=== PATIENT | male | born 1955 | race Caucasian/White ===

== ENCOUNTER 2024-04-18 12:53 | Emergency (ER) | payer OTHER, SELFPAY ==
--- NOTE | 2024-04-18 13:29 | ED.GENMED ---
History of Present Illness
General
Chief Complaint: Musculo-Skeletal Complaint
Time Seen by Provider: 04/18/24 13:15
History of Present Illness
History of Present Illness:
68-year-old male presenting with right shoulder pain status post mechanical fall. Patient states that he tripped and fell onto his right shoulder. Patient denies head strike or loss of consciousness. Patient denies neck pain, numbness, weakness,
tingling, chest pain or shortness of breath. Patient states that he is having difficulty with range of motion right shoulder secondary to pain.
Phy Exam
Physical Exam
Physical Exam:
General: Alert, no acute distress
Head: NCAT
Eyes: clear conjunctiva
Neck: supple. no midline cervical tenderness to palpation
Cardiac: regular rate and rhythm, no murmur
Lungs: clear to auscultation bilaterally. No wheezes, rales, or rhonchi. Speaking full unlabored sentences. No respiratory distress.
MSK: No right shoulder tenderness to palpation. No right humerus/elbow/wrist tenderness to palpation. 2+ right radial pulse. No right clavicle tenderness or step-off. Full range of motion right wrist and elbow.
Skin: warm, dry
Neuro: Alert and oriented x3. no focal deficits. 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
Course
Orders/Labs/Results
Orders:
Orders
04/18/24 12:59
CR Humerus - Right Min 2 View* Urgent
Comment:
Reason For Exam: fall pain
CR Shoulder, Trauma - Right Urgent
Comment:
Reason For Exam: fall pain
Vital Signs
Initial and Last Documented VS:
Initial Vital Signs
Temp Pulse Resp Pulse Ox
98.3 F 71 20 97
04/18/24 12:55 04/18/24 12:55 04/18/24 12:55 04/18/24 12:55
Last Documented Vital Signs
Temp Pulse Resp BP Pulse Ox
98.3 F 69 16 137/86 97
04/18/24 12:55 04/18/24 16:07 04/18/24 16:07 04/18/24 16:07 04/18/24 16:07
MDM/Problems Addressed
Differential Diagnosis Includes:
Patient presents to the Emergency Department with right shoulder pain s/p mechanical fall
Number and Complexity of Problems Addressed at the Encounter
� Chronic conditions affecting care:
� Acute Exacerbation and/or Progression of Chronic Illness:
� Differential Diagnosis includes: Fracture, dislocation, labrum tear, sprain
Amount and/or Complexity of Data to be Reviewed and Analyzed
� I performed an independent evaluation of and my interpretation is:
EKG:
CT:
Xrays:
Laboratory Studies:
Other:
� Review of other/old records reveals:
� Clinical information was obtained by an independent historian:
� Prescriptions/Medications Considered but not given:
� Further testing considered but not performed:
Risk of Complications and/or Morbidity or Mortality of Patient Management
� Social Determinants of health affecting care:
� Discussion with other providers (PCP, Hospitalists, Consultants, etc):
� Escalation of care including admission/observation vs risk of discharge considered: 68-year-old male presenting with right shoulder pain status post mechanical fall. Patient states that he tripped and fell onto his right shoulder. Patient denies
head strike or loss of consciousness. X-ray right shoulder and humerus reviewed by me, no acute fracture or dislocation. Will place in right shoulder sling, discharge with orthopedic follow up
*Critical Care Note
Total Time (30-74mins, 75-104mins- exclusive of procedures): Not Applicable
ED Attending Note
-
Portions of this chart may have been created with voice recognition software.� Occasional wrong word or��sound alike� substitutions may have occurred due to the inherent limitations of voice recognition software.
Discharge Plan
Departure
Patient Disposition: Home (Routine Discharge)
Date of Disposition: 04/18/24
Time of Disposition: 16:00
Patient with high blood pressure during this ER visit?: No
Discharge Problem:
Acute pain of right shoulder
Instructions: Shoulder Pain ED
Referrals:
Dona Lin I., DO [Active] -
Foreign Ruth, [Family Provider] -
Activity Restrictions/Additional Instructions:
Take tylenol 975mg every 6 hours and/or ibuprofen 800mg every 8 hours with food as needed for pain
Use shoulder sling as needed for pain. Take shoulder out of sling daily and move around fully to decrease risk of developing frozen shoulder in future
Follow up with orthopedics in 1 week
Return to the emergency department for new/worsening symptoms
Interventions
Interventions:
*Risk Screen - Suicide Last Done: 04/18/24 12:55
*General Assessment Last Done: 04/18/24 12:55
*Neglect/Abuse Screening Last Done: 04/18/24 12:55
ED- Fall Risk Assessment Last Done: 04/18/24 14:58
*ED COVID-19 Vaccine History Last Done: 04/18/24 14:57
*Nursing Disposition Last Done: 04/18/24 16:15
ED-Musculoskeletal Assessment Last Done: 04/18/24 13:54
Discharge Date and Time
Discharge Date/Time: 04/18/24 16:15
Print Language: LUXEMBOURGER
[2024-04-18 13:54] VITALS: BMI 29.6
[2024-04-18 16:07] VITALS: BP 137/86
== END 2024-04-18 16:15 | disposition home or self-care (01) ==
LOC: EMR 12:53
PROVIDERS: EMERGENCY PHYSICIAN Emergency Medicine; FAMILY PHYSICIAN Family Medicine
DX: M25.511 Pain in right shoulder (principal); S49.91XA Unspecified injury of right shoulder and upper arm, initial encounter; W01.0XXA Fall on same level from slipping, tripping and stumbling without subsequent striking against object, initial encounter; Z91.011 Allergy to milk products
CPT/HCPCS: 99283; 73030; 73060

== ENCOUNTER → 2024-08-05 11:22 | Outpatient (REF) | payer OTHER, SELFPAY | LOC: MRI 3T 11:22 | PROVIDERS: ATTENDING PHYSICIAN Physician Assistant; FAMILY PHYSICIAN Family Medicine | DX: M25.511 Pain in right shoulder (principal) | CPT/HCPCS: 73221 ==

== ENCOUNTER → 2024-08-16 15:22 | Outpatient (REF) | payer OTHER, SELFPAY ==
[2024-08-16 16:19] LABS: % Basophils 0.8 % (0-2); % Eosinophils 1.5 % (0-6); % Immature Granulocytes 0.3 % (0-0.5); % Lymphocytes 27.1 % (20.5-51.1); % Monocytes 7.5 % (1.7-9.3); % Neutrophils 62.8 % (42.2-75.2); Absolute Basophils 0.1 10^3/uL (0-0.2); Absolute Eosinophils 0.1 10^3/uL (0-0.7); Absolute Lymphocytes 2.6 10^3/uL (1.2-3.4); Absolute Monocytes 0.7 10^3/uL (0.1-0.6); Hematocrit 38.9 % (39.0-52.0); Hemoglobin 13.7 g/dL (13.0-18.0); Mean Corp Hgb Conc. 35.2 g/dL (33.0-37.0); Mean Corpuscular Hgb 29.8 pg (27.0-31.0); Mean Corpuscular Volume 84.7 fL (80.0-94.0); Mean Platelet Volume 9.6 fL (7.4-10.4); Nucleated Red Blood Cells % 0 % (-); Platelet Count 347 10^3/uL (130-400); Red Blood Cell Count 4.59 10^6/uL (4.70-6.10); White Blood Cell Count 9.5 10^3/uL (4.8-10.8)
[2024-08-16 16:48] LABS: Blood Urea Nitrogen 25 mg/dl (9-20); Calcium 9.3 mg/dl (8.4-10.2); Carbon Dioxide 32 mmol/L (22-30); Chloride 95 mmol/L (98-107); Glucose 92 mg/dl (70-99); Potassium 4.3 mmol/L (3.5-5.1); Sodium 138 mmol/L (135-145); eGFR > 60.00
== END ==
LOC: REG 15:22
PROVIDERS: ATTENDING PHYSICIAN Orthopaedic Surgery
DX: Z01.818 Encounter for other preprocedural examination (principal)
CPT/HCPCS: 36415; 80048; 85025; 93005

== ENCOUNTER 2024-08-18 06:04 | Day surgery (SDC) | payer OTHER, SELFPAY ==
[2024-08-18] VITALS (10 sets, daily range): BP systolic 113–141; BP diastolic 68–84; BMI 29.6
[2024-08-18] MEDS: CELEBREX 200 MG PO (06:13)
[2024-08-18] MEDS: TYLENOL 1000 MG PO (06:13)
[2024-08-18] MEDS: SUBLIMAZE 50 MCG IV ×3 (09:04→09:35)
[2024-08-18] MEDS: ROXICODONE 5 MG PO (10:11)
== END 2024-08-18 10:45 | disposition home or self-care (01) ==
LOC: SDS 06:04
PROVIDERS: ATTENDING PHYSICIAN Orthopaedic Surgery
DX: S46.011A Strain of muscle(s) and tendon(s) of the rotator cuff of right shoulder, initial encounter (principal); S46.211A Strain of muscle, fascia and tendon of other parts of biceps, right arm, initial encounter; X58.XXXA Exposure to other specified factors, initial encounter; M25.511 Pain in right shoulder
CPT/HCPCS: 29827

== ENCOUNTER → 2025-01-03 16:12 | Outpatient (REF) | payer OTHER, SELFPAY | LOC: MRI 3T 16:12 | PROVIDERS: ATTENDING PHYSICIAN Physician Assistant Medical; FAMILY PHYSICIAN Family Medicine | DX: C61 Malignant neoplasm of prostate (principal) | CPT/HCPCS: 72197; 73221; A9575 ==

== ENCOUNTER 2025-01-23 06:17 | Day surgery (SDC) | payer OTHER, SELFPAY | END 2025-01-23 09:10 | disposition home or self-care (01) | LOC: GI 06:17 | PROVIDERS: ATTENDING PHYSICIAN Internal Medicine Gastroenterology; FAMILY PHYSICIAN Family Medicine | DX: Z12.11 Encounter for screening for malignant neoplasm of colon (principal); Z53.8 Procedure and treatment not carried out for other reasons | CPT/HCPCS: G0378 ==

== ENCOUNTER 2025-01-24 06:22 | Day surgery (SDC) | payer OTHER, SELFPAY | END 2025-01-24 15:30 | disposition home or self-care (01) | LOC: GI 06:22 | PROVIDERS: ATTENDING PHYSICIAN Internal Medicine Gastroenterology | DX: Z12.11 Encounter for screening for malignant neoplasm of colon (principal); K57.30 Diverticulosis of large intestine without perforation or abscess without bleeding; K64.8 Other hemorrhoids | CPT/HCPCS: G0121 ==

== ENCOUNTER 2025-05-05 14:43 | Emergency (ER) | payer OTHER, SELFPAY ==
[2025-05-05 14:51] VITALS: BP 101/70; BP 116/80
[2025-05-05 15:00] VITALS: BP 116/80
[2025-05-05 15:29] LABS: Hematocrit 38.2 % (39.0-52.0); Hemoglobin 13.2 g/dL (13.0-18.0); Mean Corp Hgb Conc. 34.6 g/dL (33.0-37.0); Mean Corpuscular Volume 88.0 fL (80.0-94.0); Nucleated Red Blood Cells % 0 % (-); Platelet Count 277 10^3/uL (130-400); Red Cell Dist. Width 12.1 % (11.5-14.5)
[2025-05-05 15:52] LABS: ALT (SGPT) 23 U/L (0-50); AST (SGOT) 30 U/L (17-59); Albumin 3.7 g/dl (3.5-5.0); Alkaline Phosphatase 78 U/L (38-126); Blood Urea Nitrogen 18 mg/dl (9-20); Calcium 8.7 mg/dl (8.4-10.2); Carbon Dioxide 27 mmol/L (22-30); Chloride 98 mmol/L (98-107); Estimated Creatinine Clearance 86 ml/min; Glucose 113 mg/dl (70-99); Potassium 3.4 mmol/L (3.5-5.1); Sodium 133 mmol/L (135-145); Total Protein 5.8 g/dl (6.3-8.2); eGFR > 60.00
[2025-05-05 16:00] VITALS: BP 128/77
--- NOTE | 2025-05-05 16:30 | ED.GENMED ---
History of Present Illness
General
Chief Complaint: Abdominal Pain
Time Seen by Provider: 05/05/25 14:59
History of Present Illness
History of Present Illness:
69-year-old male presents to the emergency department for evaluation of abdominal discomfort, constipation, and a near syncopal event. The patient is 3 days status post robotic assisted prostatectomy, ventral hernia repair, and hydrocele repair
performed at [facility]. He has not had a bowel movement since then despite laxatives. He reports episodic waves of diffuse abdominal pain, was having increased pain today for a visiting nurse, she attempted to stand him at which point he had
an orthostatic episode of near syncope. He described the event as very comparable to his prior vertigo from Meniere disease.
Review of Systems
Review of Systems
Allergies reviewed?: Yes
All Other Systems: ROS reviewed and negative except as documented in HPI and ROS
Phy Exam
Physical Exam
Physical Exam:
GEN: Well appearing, NAD, WDWN
Eyes: PERRLA, EOMs intact, no scleral icterus
HENT: NCAT, oral mucosa moist
Lungs: CTAB, no wheezes, rales, rhonchi, normal chest wall excursion
Cardiac: RRR, no M/R/G, no peripheral edema. Radial pulses 2+ bilat
Abdomen: Soft but distended, postoperative incisions are clean dry and intact, no rigidity, diffusely tender to all 4 quadrants
Neuro: AO x 3
MSK: No gross deformity or ecchymosis. No edema. No digital clubbing
Skin: No rashes, petechiae. Normal color, no pallor or jaundice.
Psych: Calm, cooperative, proper hygiene
Course
Orders/Labs/Results
Orders:
Orders
05/05/25 15:16
Complete Blood Count/With Diff Urgent
Comprehensive Metabolic Panel Urgent
05/05/25 15:45
CT Abd/Pel (IV only)-DH only Urgent
Comment:
Reason For Exam: abd pain, 3d post prostatectomy/hernia repair
05/05/25 18:36
Polyethylene Glycol Powder [Miralax] 17 grams PO NOW STA
Simethicone [Mylicon] 80 mg PO NOW STA
Abnormal Lab Results
05/05/25
15:16
RBC 4.34 L 10^6/uL
(4.70-6.10)
Hct 38.2 L %
(39.0-52.0)
Abs Immat Gran (auto) 0.1 H 10^3/uL
(0-0.05)
Absolute Neuts (auto) 7.0 H 10^3/uL
(1.4-6.5)
Absolute Monos (auto) 0.9 H 10^3/uL
(0.1-0.6)
Sodium 133 L mmol/L
(135-145)
Potassium 3.4 L mmol/L
(3.5-5.1)
Glucose 113 H mg/dl
(70-99)
Total Protein 5.8 L g/dl
(6.3-8.2)
05/05/25 15:16
05/05/25 15:16
Vital Signs
Initial and Last Documented VS:
Initial Vital Signs
Temp Pulse Resp BP Pulse Ox
98.3 F 74 16 116/80 94
05/05/25 14:51 05/05/25 14:51 05/05/25 14:51 05/05/25 14:51 05/05/25 14:51
Last Documented Vital Signs
Temp Pulse Resp BP Pulse Ox
98.3 F 75 20 128/77 96
05/05/25 14:51 05/05/25 18:30 05/05/25 18:30 05/05/25 16:00 05/05/25 18:30
MDM/Problems Addressed
MDM/Problems Addressed:
69-year-old male presenting with abdominal discomfort and a near syncopal/vasovagal event. Imaging revealed fluid collections in the pelvis however reviewed these findings via telephone with on-call urology Dr. Aguilar at [facility], he
feels that these most likely represent postoperative seromas/lymphatic collections in the setting of no fever and no leukocytosis. Patient feels improved at this time. I suspect his abdominal pain is most likely related to increased colonic air
and stool. Will discuss bowel regimen, patient suitable for outpatient management
*Pulse Oximetry
SaO2: 94
Nasal Cannula flow liters per minute: 2
Patient hypoxic: no
*Critical Care Note
Total Time (30-74mins, 75-104mins- exclusive of procedures): Not Applicable
ED Attending Note
-
Portions of this chart may have been created with voice recognition software.� Occasional wrong word or��sound alike� substitutions may have occurred due to the inherent limitations of voice recognition software.
Discharge Plan
Departure
Patient Disposition: Home (Routine Discharge)
Date of Disposition: 05/05/25
Time of Disposition: 18:34
Patient with high blood pressure during this ER visit?: No
Discharge Problem:
Abdominal bloating, Post operative fluid collection
Instructions: Constipation, Adult (DC)
Prescriptions:
No Action
lisinopril-hydrochlorothiazide 20-25 mg tablet
1 tab PO QPM
diazepam 5 mg tablet
5 mg PO PRN PRN (Reason: Dizziness)
Referrals:
Foreign Ruth DO [Family Provider, Family Practice]
Activity Restrictions/Additional Instructions:
MiraLAX 1 capful once daily
Colace 100 mg with each dose of pain medicine
Gas-X as needed
Interventions
Interventions:
*Risk Screen - Suicide Last Done: 05/05/25 14:51
*General Assessment Last Done: 05/05/25 14:51
*Neglect/Abuse Screening Last Done: 05/05/25 14:51
*ED- Fall Risk Assessment Last Done: 05/05/25 15:22
*ED COVID-19 Vaccine History Last Done: 05/05/25 15:07
[facility] Assessment Last Done: 05/05/25 15:22
Discharge Date and Time
Print Language: URDU
[2025-05-05 18:37] VITALS: BP 110/71
[2025-05-05] MEDS: MYLICON 80 MG PO (18:47)
[2025-05-05] MEDS: MIRALAX 17 GRAMS PO (18:48)
== END 2025-05-05 18:56 | disposition home or self-care (01) ==
LOC: EMR 14:43
PROVIDERS: Physician Assistant; EMERGENCY PHYSICIAN Emergency Medicine; FAMILY PHYSICIAN Family Medicine
DX: R10.9 Unspecified abdominal pain (principal); K59.00 Constipation, unspecified; H81.09 Meniere's disease, unspecified ear
CPT/HCPCS: 99284; 74177; 80053; 85025; 93005; Q9967